=== PATIENT | female | born 1975 | race Asian ===

== ENCOUNTER 2021-12-21 12:57 | Emergency (ER) | payer OTHER ==
[~2021-12-21] VITALS: Ht 157.5 cm; Wt 67.6 kg
[2021-12-21 13:26] VITALS: BP 148/95
--- NOTE | 2021-12-21 16:10 | NUR ---
PT AMBULATED TO ROOM 6
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
[2021-12-21 16:43] VITALS: BP 130/81
--- NOTE | 2021-12-21 16:43 | NUR ---
Patient discharged with v/s stable. Written and verbal after care instructions FOR SMOKE INHALATION given and explained. Patient verbalized understanding. Ambulatory with steady gait. All questions addressed prior to discharge. Advised to follow up with PMD. WORK NOTE PROVIDED
--- NOTE | 2021-12-21 17:00 | NUR ---
The patient's care was reviewed and supervised by Aranza Morrison RN.
== END 2021-12-21 16:43 | disposition home or self-care (01) ==
LOC: MED 12:57
DX: T59.811A Toxic effect of smoke, accidental (unintentional), initial encounter (principal); Y92.89 Other specified places as the place of occurrence of the external cause
CPT/HCPCS: 71045; 99283; Q0092